=== PATIENT | female | born 1935 | race Caucasian/White ===

== ENCOUNTER 2016-10-22 20:40 | Emergency (ER) | payer MEDICARE ==
[2016-10-22 21:03] VITALS: BP 153/89
[2016-10-22 21:33] LABS: Hematocrit 38.9 % (30.3-42.9); Hemoglobin 11.9 gm/dl (10.1-14.3); Mean Corpuscular HGB Conc 31 % (30-34); Mean Corpuscular Volume 76 fl (79-97); Platelet Count 209 K/mm3 (140-440); Red Blood Count 5.15 M/mm3 (3.65-5.03); White Blood Count 7.7 K/mm3 (4.5-11.0)
[2016-10-22 21:34] LABS: Mean Corpuscular Hemoglobin 23 pg (28-32)
[2016-10-22 22:11] LABS: Anion Gap 14 mmol/L; BUN/Creatinine Ratio 18.57; Blood Urea Nitrogen 13 mg/dL (7-17); Calcium 9.3 mg/dL (8.4-10.2); Carbon Dioxide 27 mmol/L (22-30); Glucose 140 mg/dL (65-100); Potassium 4.1 mmol/L (3.6-5.0); Sodium 141 mmol/L (137-145)
[2016-10-22 22:21] LABS: Bilirubin,Urine NEG (Negative); Blood,Urine NEG (Negative); Ketones,Urine NEG (Negative); Leukocyte Esterase,Urine MOD (Negative); Mucus,Urine FEW /HPF; Nitrite,Urine NEG (Negative); Protein,Urine <15 mg/dL mg/dL (Negative); Urobilinogen,Urine < 2.0 mg/dL (<2.0)
--- NOTE | 2016-10-24 19:58 | ED Elopement Review ---
ED Pt Elopement review - Results review Lab results: Laboratory Tests 10/22/16 10/22/16 10/22/16 21:22 21:22 21:30 WBC 7.7 RBC 5.15 H Hgb 11.9 Hct 38.9 MCV 76 L MCH 23 L MCHC 31 RDW 16.0 H Plt Count 209 Sodium 141 Potassium 4.1 Chloride 104.0 Carbon Dioxide 27 Anion Gap 14 BUN 13 Creatinine 0.7 Estimated GFR > 60 BUN/Creatinine Ratio 18.57 Glucose 140 H Calcium 9.3 Urine Color Yellow Urine Turbidity Clear Urine pH 5.0 Ur Specific Ione 1.020 Urine Protein <15 mg/dl Urine Glucose (UA) Neg Urine Ketones Neg Urine Blood Neg Urine Nitrite Neg Urine Bilirubin Neg Urine Urobilinogen < 2.0 Ur Leukocyte Esterase Mod Urine WBC (Auto) 2.0 Urine RBC (Auto) 2.0 U Epithel Cells (Auto) 4.0 Urine Mucus Few - Call Back decision Pt Call Back Decision: No action required
== END 2016-10-23 04:40 | disposition left against medical advice (07) ==
LOC: ED 20:40
DX: Z53.21 Procedure and treatment not carried out due to patient leaving prior to being seen by health care provider (principal)
CPT/HCPCS: 36415; 80048; 81001; 85027